=== PATIENT | female | born 1950 | race Caucasian/White ===

== ENCOUNTER → 2020-04-10 15:39 | Outpatient (BNVA) | payer MEDICARE, SELFPAY | PROVIDERS: Family Provider Nurse Practitioner Family; Visit Provider Family Medicine | DX: K21.9 Gastro-esophageal reflux disease without esophagitis (principal) | CPT/HCPCS: 36415; 80053; 84439; 84443; 85025 ==

== ENCOUNTER → 2021-04-16 09:26 | Outpatient (BNVA) | payer MEDICARE, SELFPAY | PROVIDERS: Family Provider Nurse Practitioner Family; PCP Family Medicine; Visit Provider Nurse Practitioner Family | DX: R03.0 Elevated blood-pressure reading, without diagnosis of hypertension (principal); E56.9 Vitamin deficiency, unspecified | CPT/HCPCS: 80053; 80061; 82306; 84443; 85025 ==

== ENCOUNTER 2021-05-15 13:42 | Outpatient (CLI) | payer MEDICARE, SELFPAY ==
--- NOTE | 2021-05-15 13:53 | MM_ITS ---
WS: [email or web address] BILATERAL DIGITAL SCREENING MAMMOGRAPHY WITH CAD CLINICAL INFORMATION: Z12.31 - Encounter for screening mammogram for malignant ... HISTORY: Screening mammogram. No current complaints. COMPARISON: TECHNIQUE: Bilateral CC and MLO views. FINDINGS: Scattered fibroglandular densities bilaterally. Benign punctate and lucent centered calcifications ar e stable. No suspicious focal mass, asymmetry, calcifications, or architectural distortion. No eviden ce of malignancy. MM/[place] [id number] IMPRESSION: BI-RADS: 2-Benign FOLLOW UP: 1 Year Follow-up Recommend return to annual screening mammography.
--- NOTE | 2021-05-15 14:20 | XR_ITS ---
WS: [email or web address] DEXA (DUAL ENERGY X-RAY ABSORPTIOMETRY) Bone mineral density was performed using a [employer] machine. HISTORY: Z78.0 - Asymptomatic menopausal state COMPARISON: None available. Lumbar spine BMD (L1-L4): 0.905 g/cm2 T score: -2.3 Z score: -0.2 Total hip BMD: Left: 0.705 g/cm2. T score: -2.4 Z score: -0.7 Right: 0.693 g/cm2. T score: -2.5 Z score: -0.8 10 year probability of a major osteoporotic fracture is 17%. XR/XR DEXA axial skeleton* [id number] IMPRESSION: OSTEOPOROSIS based upon the WHO classification for females.
== END 2021-05-15 13:43 | disposition home or self-care (01) ==
LOC: RADSHAW 13:46
PROVIDERS: PCP Family Medicine; Visit Provider Nurse Practitioner Family
DX: Z12.31 Encounter for screening mammogram for malignant neoplasm of breast (principal); Z78.0 Asymptomatic menopausal state; M81.0 Age-related osteoporosis without current pathological fracture
CPT/HCPCS: 77067; 77080

== ENCOUNTER 2022-03-13 10:03 | Outpatient (CLI) | payer MEDICARE, SELFPAY ==
--- NOTE | 2022-03-13 10:34 | XRR_ITS ---
PROCEDURE INFORMATION: Exam: XR Thoracic Spine Exam date and time: 03/13/2022 10:56 AM Age: 71 years old Clinical indication: Pain in thoracic spine; Prior surgery; Surgery type: Appendix; Patient HX: Mid back pain, costocondritis; Additional info: R07.89 - other chest pain TECHNIQUE: Imaging protocol: Radiologic exam of the thoracic spine. Views: 3 views. COMPARISON: No relevant prior studies available. FINDINGS: Bones/joints: Low density bone consistent with osteopenia/osteoporosis. 10% anterior wedging of T7 of indeterminate age. Soft tissues: Unremarkable. XR/XR thoracic spine 3V* [id number] IMPRESSION: 1. Low density bone consistent with osteopenia/osteoporosis. 2. 10% anterior wedging of T7 of indeterminate age.
== END 2022-03-13 10:04 | disposition home or self-care (01) ==
LOC: RAD 10:04
PROVIDERS: PCP Family Medicine; Visit Provider Family Medicine
DX: M54.6 Pain in thoracic spine (principal)
CPT/HCPCS: 72072

== ENCOUNTER → 2022-03-24 12:35 | Outpatient (BNVA) | payer MEDICARE, SELFPAY | PROVIDERS: PCP Family Medicine; Visit Provider Family Medicine | DX: M81.0 Age-related osteoporosis without current pathological fracture (principal); M81.8 Other osteoporosis without current pathological fracture; S22.000A Wedge compression fracture of unspecified thoracic vertebra, initial encounter for closed fracture; R07.89 Other chest pain | CPT/HCPCS: 80053 ==

== ENCOUNTER 2022-06-11 13:21 | Outpatient (CLI) | payer MEDICARE, SELFPAY ==
--- NOTE | 2022-06-11 13:27 | MM_ITS ---
WS: [email or web address] BILATERAL 3D TOMOSYNTHESIS DIGITAL SCREENING MAMMOGRAPHY WITH CAD CLINICAL INFORMATION: SCREENING HISTORY: Screening mammogram. No current complaints. COMPARISON: 2020 TECHNIQUE: Bilateral CC and MLO views. FINDINGS: Scattered fibroglandular densities bilaterally. No suspicious focal mass, asymmetry, calcifications, or architectural distortion. No evidence of malignancy. Stable punctate calcifications. MM/[place] [id number] IMPRESSION: BI-RADS: 2-Benign FOLLOW UP: 1 Year Follow-up Recommend return to annual screening mammography.
== END 2022-06-11 13:22 | disposition home or self-care (01) ==
LOC: RAD 13:23
PROVIDERS: PCP Family Medicine; Visit Provider Family Medicine
DX: Z12.31 Encounter for screening mammogram for malignant neoplasm of breast (principal)
CPT/HCPCS: 77063; 77067

== ENCOUNTER → 2022-09-16 09:18 | Outpatient (BNVA) | payer MEDICARE, SELFPAY | PROVIDERS: PCP Family Medicine; Visit Provider Family Medicine | DX: E56.9 Vitamin deficiency, unspecified (principal); E78.5 Hyperlipidemia, unspecified; M81.0 Age-related osteoporosis without current pathological fracture; R07.89 Other chest pain | CPT/HCPCS: 80053; 80061; 84439; 84443 ==

== ENCOUNTER 2023-05-18 13:36 | Outpatient (CLI) | payer MEDICARE, SELFPAY ==
--- NOTE | 2023-05-18 14:00 | XR_ITS ---
WS: [email or web address] DEXA (DUAL ENERGY X-RAY ABSORPTIOMETRY) Bone mineral density was performed using a [employer] machine. HISTORY: Z78.0 - Asymptomatic menopausal state COMPARISON: 05/15/2021 Lumbar spine BMD (L1-L4): 0.974 g/cm2 T score: -1.7 Z score: 0.3 Total hip BMD: Left: 0.723 g/cm2. T score: -2.3 Z score: -0.5 Right: 0.727 g/cm2. T score: -2.2 Z score: -0.4 10 year probability of a major osteoporotic fracture is 17.2%. Compared to the prior study from 05/15/2021. Lumbar spine bone mineral density has increased by 7.6%. Bilateral hips bone mineral density has increased by 3.7%. IMPRESSION: OSTEOPENIA based upon the WHO classification for females. Significant increase in bone mineral density within the lumbar spine and hips since the prior study.
== END 2023-05-18 13:37 | disposition home or self-care (01) ==
LOC: RAD 13:36
PROVIDERS: PCP Family Medicine; Visit Provider Family Medicine
DX: Z78.0 Asymptomatic menopausal state (principal); M85.80 Other specified disorders of bone density and structure, unspecified site
CPT/HCPCS: 77080

== ENCOUNTER 2023-06-10 10:35 | Outpatient (CLI) | payer MEDICARE, SELFPAY ==
--- NOTE | 2023-06-10 10:44 | XR_ITS ---
WS: [email or web address] Exam: XR cervical spine 3V* [id number] Date/Time of Exam: 06/10/2023 10:48 AM Reason For Exam: M54.2 - Cervicalgia No fracture or dislocation. 4 mm degenerative anterolisthesis of C7 on T1. Early degenerative disc na rrowing at C5-6. Facet DJD at all levels. Normal paraspinal soft tissues. The odontoid is intact. IMPRESSION: 1. No fracture or malalignment. 2. Degenerative changes as detailed above.
== END 2023-06-10 10:36 | disposition home or self-care (01) ==
LOC: RAD 10:36
PROVIDERS: PCP Family Medicine; Visit Provider Family Medicine
DX: M47.813 Spondylosis without myelopathy or radiculopathy, cervicothoracic region (principal); M81.0 Age-related osteoporosis without current pathological fracture
CPT/HCPCS: 72040

== ENCOUNTER → 2023-09-10 11:01 | Outpatient (BNVA) | payer MEDICARE, SELFPAY | PROVIDERS: PCP Family Medicine; Referring Provider Family Medicine; Visit Provider Surgery | DX: K21.9 Gastro-esophageal reflux disease without esophagitis (principal) | CPT/HCPCS: 99204 ==

== ENCOUNTER 2023-10-08 09:18 | Day surgery (SDC) | payer MEDICARE, SELFPAY ==
[2023-10-08 09:34] VITALS: BP 143/73; PULSE 71; RESP 18; TEMP 36.5; O2SAT 100; BMI 22.1
[2023-10-08] MEDS: sodium chloride 0.9% 1,000 ML 30 ML IV (09:39)
--- NOTE | 2023-10-08 10:31 | ANES.PREANE2 ---
Pre-Anesthetic Assessment Height/Weight: Height 1.6 m Weight 56.699 kg Temp Pulse Resp BP Pulse Ox O2 Del Method 97.7 F 71 18 143/73 100 Room Air 10/08/23 09:34 10/08/23 09:34 10/08/23 09:34 10/08/23 09:34 10/08/23 09:34 10/08/23 09:34 Preop Diagnosis: GERD Operation Date: 10/08/23 10:30 Proposed Procedures p EGD(Not Applicable) - Deuce Mobley DO Familial anesthetic complications: none Was Beta Peng taken within 24 hours: N/A Was Clonidine taken within 24 hours: N/A Last intake: Intake Last Liquid Date 10/07/23 Last Liquid Time 22:00 Last Solid Date 10/07/23 Last Solid Time 18:30 Social No alcohol and No tobacco Exam alert, oriented x 3, clear to auscultation bilaterally and regular rate & rhythm Airway Submandibular: within normal limits Cervical ROM: within normal limits Mallampati: Class I Dentition: full Pulmonary None reported CV/HEM None reported None reported Hepatic None reported GI Gastroesophageal Reflux Disease Metabolic None reported Musc/skel None reported Neuropsych None reported Anesthetic Plan Anesthesia: MAC Risk of > 500 ml blood loss (7ml/kg in children): No Medications/Allergies Home Medications Medication Instructions Recorded Confirmed Last Taken Type osteo-7 3 tab PO TID 07/01/21 10/08/23 10/07/23 History oxyquinoline 0.025 %-sodium lauryl See Rx Instructions vaginal 04/06/23 10/08/23 Unknown Rx sulfate 0.01 % vaginal gel DIRECTED #113.4 grams (Trimo-Cast Jelly) pantoprazole 40 mg tablet,delayed 40 mg PO BID 6 weeks #84 tabs 09/28/23 10/08/23 Unknown Rx release (Protonix) Allergies Allergy/AdvReac Type Severity Reaction Status Date / Time No Known Allergies Allergy Verified 10/08/23 09:27 Current Medications Generic Name Dose Route Start Last Admin Trade Name Freq PRN Reason Stop Dose Admin Sodium Chloride 1,000 mls @ 30 mls/hr 10/08/23 09:30 10/08/23 09:39 Sodium Chloride 0.9% IV 10/09/23 09:29 30 mls/hr .Q24H PERRI Administration PFSH Anesthesia Medical History Female bladder prolapse Patient was counseled regarding findings with cystocele stage II. She was counseled regarding pelvic organ prolapse, that her uterus had dropped down into the vagina, likely due to the weakening of the connective tissues and ligaments that support the uterus. In pre-menopausal women, prolapse often develops after the pelvic floor muscles become stretched from childbirth. But additional causes of pelvic organ prolapse include obesity, coughing, COPD, and conditions that cause paralysis of the pelvic floor muscles, such as multiple sclerosis, a spinal cord injury, or muscular dystrophy. Her pelvic organ prolapse is a stage III prolapse and this mean Pelvic organ(s) are beginning to bulge to or beyond the opening of the vagina. In her case her bladder pass the introitus as depicted above. Treatments for POP depends on the severity of the prolapse and include medication, pessaries physical therapy and surgery. She elected for pessary and decline surgery at this time because she is taking care of her who just recently suffered a stroke. A #5 pessary with diaphragm was placed without complications. Patient was counseled regarding maintenance. Pessary maintenance Patient reports she is doing good with pessary and she wants to continue using it. Patient referred the current pessary size feel comfortable when she is standing up. On examination no tight spots or abrasions noted. No lesions noted. She currently have #4 ring pessary with diaphragm. Was counseled on the proper way of insertion and removal of the pessary and advice to continue using the Trimosan intravaginal jelly for lubrication to decrease the risk of BV. Surgical History History of appendectomy (~1986) Family History Mother Hypertension Ovarian cancer 76 Father Hyperlipidemia Diabetes Unknown Heart disease Maternal grandfather Patient denies medical problems Denies family history of: Diabetes Mellitus, Stroke, Thyroid problems, Breast Cancer, Uterine Cancer, Colon Cancer Denies family history of Colon cancer Clotting disorder Breast cancer Anesthesia complication Bleeding disorder Uterine cancer Thyroid disease Stroke Social History Smoking and tobacco/nicotine status: never used tobacco/nicotine Alcohol intake: never Substance/Drug Use: never Data Anesthesia Cardiac Studies: No Data to Display
--- NOTE | 2023-10-08 11:04 | W.PM.OPSUD ---
Surgery/Procedure H&P Update DATE OF PROCEDURE: October 08, 2023 DATE H&P PERFORMED: 09/10/23 H&P UPDATE INFORMATION: I have reviewed H&P completed within last 30 days, I have examined patient prior to procedure and No changes to prior documentation PREOP DIAGNOSIS: GERD PLANNED PROCEDURE: Operation Date: 10/08/23 10:30 Proposed Procedures p EGD(Not Applicable) - Deuce Mobley DO
[2023-10-08 11:15] VITALS: BP 104/60; PULSE 64; RESP 12; TEMP 36.4; O2SAT 98
[2023-10-08 11:20] VITALS: BP 103/59; PULSE 61; RESP 12; O2SAT 97
[2023-10-08 11:30] VITALS: BP 105/74; PULSE 64; RESP 18; O2SAT 99
--- NOTE | 2023-10-08 15:00 | ANE.PACU2 ---
Inpatient post-anesthesia follow up: Airway intact: Yes Vital signs: Temperature 97.6 F Pulse Rate 64 Respiratory Rate 18 Blood Pressure 105/74 Pulse Oximetry 99 Oxygen Delivery Me thod Room Air Oxygen Flow Rate Fraction of Inspir ed Oxygen Hydration adequate: No Nausea and vomiting: No Pain level: 2 Mental status: Baseline
== END 2023-10-08 11:54 | disposition home or self-care (01) ==
PROVIDERS: PCP Family Medicine; Visit Provider Surgery
PROC: 0DJ08ZZ Inspection of Upper Intestinal Tract, Via Natural or Artificial Opening Endoscopic (ICD-10-PCS; CPT 43235; principal; 2023-10-08 10:30)
DX: K21.9 Gastro-esophageal reflux disease without esophagitis (principal); K44.9 Diaphragmatic hernia without obstruction or gangrene
CPT/HCPCS: 43239; 88305; 88342; J2704; J7030

== ENCOUNTER → 2023-10-13 12:17 | Outpatient (BNVA) | payer MEDICARE, SELFPAY | PROVIDERS: PCP Family Medicine; Visit Provider Obstetrics & Gynecology | DX: R10.2 Pelvic and perineal pain (principal) | CPT/HCPCS: 76830 ==

== ENCOUNTER → 2023-10-30 10:19 | Outpatient (BNVA) | payer MEDICARE, SELFPAY | PROVIDERS: PCP Family Medicine; Visit Provider Surgery | DX: Z09 Encounter for follow-up examination after completed treatment for conditions other than malignant neoplasm (principal); K21.9 Gastro-esophageal reflux disease without esophagitis; K44.9 Diaphragmatic hernia without obstruction or gangrene | CPT/HCPCS: 99214 ==

== ENCOUNTER → 2024-01-11 11:09 | Day surgery (SDC) | payer MEDICARE, SELFPAY | LOC: OPS 01-28 12:26 | PROVIDERS: PCP Family Medicine; Visit Provider Obstetrics & Gynecology | DX: Z01.818 Encounter for other preprocedural examination (principal) | CPT/HCPCS: 93005 ==

== ENCOUNTER 2024-01-19 11:09 | Observation (INO) | payer MEDICARE, SELFPAY ==
--- NOTE | 2024-01-11 11:09 | ECG_ITS ---
[facility] Test Date: 2024-01-11 Pat Name: Tara Pena Department: Room: Gender: Female Patient Transport Officer: : 1950 Requested By: Brant Martinez Order Number: [id number] Karina MD: Arnav Krause M.D. Measurements Intervals [place] Rate: 67 P: 63 [place]: 150 QRS: 37 QRSD: 86 T: 41 QT: 401 QTc: 425 Interpretive Statements SINUS RHYTHM POSSIBLE RIGHT VENTRICULAR CONDUCTION DELAY [RSR (QR) IN V1/V2] No previous ECG available for comparison Electronically Signed On 01-11-2024 14:22:11 CDT by Arnav Krause M.D. [id number]
[2024-01-11 11:17] LABS: Basophils % 0.7 %; Eosinophils # 0.2 10^3/uL (0.0-0.8); Eosinophils % 2.6 %; Hematocrit 38.5 % (36-47); Lymphocytes % 33.9 %; Mean Corpuscular HGB Conc 32.7 g/dL (30-55); Mean Corpuscular Hemoglobin 30.4 pg (27-33); Mean Platelet Volume 9.7 fL (7.4-10.4); Monocytes # 0.6 10^3/uL (0.2-0.9); Monocytes % 9.7 %; Neutrophils # 3.06 10^3/uL (1.8-7.7); Neutrophils % 52.9 %; Nucleated Red Blood Cells % 0 %; Platelet Count 227 10^3/cmm (157-399); Red Blood Count 4.14 10^6/uL (3.85-5.65); Red Cell Distribution Width 14.5 % (12.1-15.1); White Blood Count 5.78 10^3/uL (3.29-11.43)
--- NOTE | 2024-01-11 11:21 | ANES.PREANE2 ---
Pre-Anesthetic Assessment Height/Weight: Height 1.6 m Operation Date: 01/19/24 07:00 Proposed Procedures p Total Vaginal Hysterectomy 21673, 72206, 63035, 72322, R10.2, N81.3(Not Applicable) - MD kelly Minor Salpingo-Oophorectomy (Vaginal)(Bilateral) - MD kelly Minor Anterior Repair Anterior Colporrhaphy(Not Applicable) - MD kelly Minor Posterior Repair Posterior Colporrhaphy(Not Applicable) - MD kelly Minor Sling Single Incision Midurethral Sling(Not Applicable) - MD kelly Minor Sacrospinous Ligament Suspension Sacrospinous Fixation(Not Applicable) - Brant Dobbs MD Social No alcohol and No tobacco Exam alert, oriented x 3, clear to auscultation bilaterally and regular rate & rhythm Airway Submandibular: within normal limits Cervical ROM: within normal limits Mallampati: Class I Pulmonary None reported CV/HEM None reported None reported Hepatic None reported GI Hiatal Hernia Metabolic None reported Anesthetic Plan ASA status: 2 Anesthesia: General Medications/Allergies Home Medications Medication Instructions Recorded Confirmed Last Taken Type oxyquinoline 0.025 %-sodium lauryl See Rx Instructions vaginal 04/06/23 01/11/24 01/11/24 Rx sulfate 0.01 % vaginal gel DIRECTED #113.4 grams (Trimo-Cast Jelly) Allergies Allergy/AdvReac Type Severity Reaction Status Date / Time No Known Allergies Allergy Verified 10/30/23 10:21 [facility] Anesthesia Medical History Female bladder prolapse Patient was counseled regarding findings with cystocele stage II. She was counseled regarding pelvic organ prolapse, that her uterus had dropped down into the vagina, likely due to the weakening of the connective tissues and ligaments that support the uterus. In pre-menopausal women, prolapse often develops after the pelvic floor muscles become stretched from childbirth. But additional causes of pelvic organ prolapse include obesity, coughing, COPD, and conditions that cause paralysis of the pelvic floor muscles, such as multiple sclerosis, a spinal cord injury, or muscular dystrophy. Her pelvic organ prolapse is a stage III prolapse and this mean Pelvic organ(s) are beginning to bulge to or beyond the opening of the vagina. In her case her bladder pass the introitus as depicted above. Treatments for POP depends on the severity of the prolapse and include medication, pessaries physical therapy and surgery. She elected for pessary and decline surgery at this time because she is taking care of her who just recently suffered a stroke. A #5 pessary with diaphragm was placed without complications. Patient was counseled regarding maintenance. Pessary maintenance Patient reports she is doing good with pessary and she wants to continue using it. Patient referred the current pessary size feel comfortable when she is standing up. On examination no tight spots or abrasions noted. No lesions noted. She currently have #4 ring pessary with diaphragm. Was counseled on the proper way of insertion and removal of the pessary and advice to continue using the Trimosan intravaginal jelly for lubrication to decrease the risk of BV. Surgical History History of appendectomy (~1986) Family History Mother Hypertension Ovarian cancer 76 Father Hyperlipidemia Diabetes Unknown Heart disease Maternal grandfather Patient denies medical problems Denies family history of: Diabetes Mellitus, Stroke, Thyroid problems, Breast Cancer, Uterine Cancer, Colon Cancer Denies family history of Colon cancer Clotting disorder Breast cancer Anesthesia complication Bleeding disorder Uterine cancer Thyroid disease Stroke Social History (Updated 01/11/24 @ 08:26 by Pojoa Hameed LPN) Smoking and tobacco/nicotine status: never used tobacco/nicotine Data Anesthesia 01/11/24 10:50 01/11/24 10:50 Short CBC 01/11/24 Range/Units 10:50 WBC 5.78 (3.29-11.43) 10^3/uL Hgb 12.60 (11.27-16.99) g/dL Hct 38.5 (36-47) % MCV 93.0 (85-98) fl Plt Count 227 (157-399) 10^3/cmm Neut % (Auto) 52.9 % Neut # (Auto) 3.06 (1.8-7.7) 10^3/uL Cardiac Studies: No Data to Display
[2024-01-11 11:31] LABS: Add Urine Microscopic? YES; Bilirubin Urine Neg (Negative); Blood Urine 2+ (Negative); Glucose Urine UA Norm (Normal); Ketones Urine Negative (Negative); Leukocyte Esterase Urine 1+ (Negative); Nitrate Urine Negative (Negative); Protein Urine Neg (Negative); Specific Gravity, Urine 1.005 (1.005-1.030); Urine Appearance Clear (CLEAR); Urine Color Yellow (Yellow); Urobilinogen Urine Norm (Negative); pH Urine 7 (5-7)
[2024-01-11 11:33] LABS: Add Urine Culture? No; Bacteria Urine TRACE /hpf; RBC Urine 0-4 /hpf (0-2); Squamous Epithelial Cell Urine 0-4 /hpf (0-5); WBC Urine 0-4 /hpf (0-5)
[2024-01-11 11:44] LABS: Alanine Aminotransferase 14 U/L (0-33); Albumin Level 4.6 g/dL (3.5-5.2); Alkaline Phosphatase 78 U/L (35-105); Anion Gap 16.2 (5-19); Aspartate Amino Transferase 23 U/L (0-32); Blood Urea Nitrogen 22 mg/dL (8-23); Calcium 9.4 mg/dL (8.5-10.5); Carbon Dioxide 25 mmol/L (22-29); Chloride 102 mmol/L (98-107); Globulin 2.7 g/dL (1.3-4.6); Glucose 99 mg/dL (65-115); Osmolality Calculated 291 mOsm/kg (285-295); Potassium 4.2 mmol/L (3.5-5.1); Sodium 139 mmol/L (136-145); Total Bilirubin 0.4 mg/dL (0.15-1.2); Total Protein 7.3 g/dL (6.6-8.7)
[2024-01-19] VITALS (41 sets, daily range): BP systolic 77–135; BP diastolic 45–67; PULSE 54–76; RESP 12–26; TEMP 36.4–37.2; O2SAT 94–100; BMI 22.1
--- NOTE | 2024-01-19 06:50 | W.PM.OPSUD ---
Surgery/Procedure H&P Update DATE OF PROCEDURE: January 19, 2024 DATE H&P PERFORMED: 01/11/24 H&P UPDATE INFORMATION: I have reviewed H&P completed within last 30 days, I have examined patient prior to procedure and No changes to prior documentation PREOP DIAGNOSIS: Uterine prolapse, cystocele stage III, PLANNED PROCEDURE: Operation Date: 01/19/24 08:00 Proposed Procedures p Total Vaginal Hysterectomy 70490, 09685, 10114, 93857, R10.2, N81.3(Not Applicable) - Brant Dobbs MD s Salpingo-Oophorectomy (Vaginal)(Bilateral) - Brant Dobbs MD s Anterior Repair Anterior Colporrhaphy(Not Applicable) - Brant Dobbs MD s Posterior Repair Posterior Colporrhaphy(Not Applicable) - Brant Dobbs MD s Sling Single Incision Midurethral Sling(Not Applicable) - Brant Dobbs MD s Sacrospinous Ligament Suspension Sacrospinous Fixation(Not Applicable) - Brant Dobbs MD
[2024-01-19] MEDS: sodium chloride 0.9% 500 ML IV (07:06)
[2024-01-19] MEDS: enoxaparin 30 mg/0.3 mL Syringe SUBCUT (07:06)
[2024-01-19] MEDS: sodium chloride 0.9% 1,000 ML 30 ML IV (07:07)
[2024-01-19] MEDS: scopolamine 1.5 Patch 1 PATCH TRANSDERMA (07:07)
--- NOTE | 2024-01-19 07:28 | P.ANESUD_ITS ---
Pre-Anesthetic Update Pre-Anesthetic Assessment: Date of Surgery/Procedure: 01/19/24 Preop Rahel gnosis: Uterine prolapse, cystocele stage III, Proposed Procedure: Operation Date: 01/19/24 08:00 Proposed Procedures p Total Vaginal Hysterectomy 11744, 43480, 55654, 55859, R10.2, N81.3(Not Applicable) - MD kelly Minor Salpingo-Oophorectomy (Vaginal)(Bilateral) - MD kelly Minor Anterior Repair Anterior Colporrhaphy(Not Applicable) - MD kelly Minor Posterior Repair Posterior Colporrhaphy(Not Applicable) - MD kelly Minor Sling Single Incision Midurethral Sling(Not Applicable) - MD kelly Minor Sacrospinous Ligament Suspension Sacrospinous Fixation(Not Applicable) - Brant Dobbs MD Any changes to Pre-Anesthetic Assessment?: No Last Intake: Intake Last Liquid Date 01/18/24 Last Liquid Time 21:30 Last Solid Date 01/18/24 Last Solid Time 19:30 Vitals: Temperature 97.6 F 01/19/24 06:46 Temperature Source Temporal Artery S can 01/19/24 06:46 Pulse Rate 66 01/19/24 06:46 Respiratory Rate 18 01/19/24 06:46 Blood Pressure 135/66 01/19/24 06:46 Blood Pressure Karoline n 89 01/19/24 06:46 Pulse Oximetry 100 01/19/24 06:46 Oxygen Delivery Me thod Room Air 01/19/24 06:47 Exam: Pre-Anes Outpt Exam: alert, oriented x 3, clear to auscultation bilaterally and regular rate & rhythm Cardiac Studies: No Data to Display
[2024-01-19] MEDS: ceFOXitin 2,000 mg SDV 2000 MG IVP (07:39)
[2024-01-19] MEDS: lidocaine-epi 2% PF 1:200,000 20 mL SDV INJECTION ×2 (08:20→09:30)
--- NOTE | 2024-01-19 10:27 | P.OP_ITS ---
Operative Report Date of procedure: January 19, 2024 Pre-op diagnosis: Pelvic pain Cystocele uterine prolapse stage III Post-op diagnosis: Pelvic pain Cystocele stage III Uterovaginal prolapse stage III Rectocele stage III Procedure done: Total vaginal hysterectomy Right salpingo-oophorectomy Anterior colporrhaphy augmented with allograft Midurethral sling Posterior colporrhaphy Sacrospinous fixation Cystoscopy Implants: Coloplast dermis allograft Coloplast Altis sling Specimens removed/disposition: Uterus Right fallopian tube and ovary Surgeon: Brant Dobbs MD Estimated blood loss (mL): 350 IV fluids (mL): 1,500 Urine output (mL): 300 Complications: Bleeding Findings: Small uterus Small right ovary Left ovary could not be identified Procedure: After informed consent and risks, benefits, indications and alternatives reviewed with the patient was taken to the operating room. The patient was placed in dorsal lithotomy position prepped, and draped in the usual sterile fashion. The pre-procedure timeout verifying the correct patient, procedure, site and side, could not requirements was performed and acknowledge by the OR team. A Calloway catheter was placed. A Bookwalter vaginal retractor was placed into the vagina in usual manner visualize the cervix. Cervix was grasped with a single tooth tenaculum and circumferentially infiltrated with 2% lidocaine with epinephrine. Then cervix was circumferentially incised with bovie and the bladder was dissected off the pubovesical cervical fascia anteriorly with a sponge stick and Metzenbaum scissors. The anterior peritoneal reflection was identified and the anterior cul-de-sac was entered sharply with Metzenbaum scissors. The same procedure was performed posteriorly and a posterior colpotomy was made through the posterior cul-de-sac space without difficulty and the posterior blade of the Bookwalter vaginal retractor was advanced posteriorly into the cul-de-sac. At this time, the left and right uterosacral ligaments were isolated and ligated with 0 Vicryl. The LigaSure device was placed over the uterosacral ligaments on either side and was then used in a serial fashion up through the cardinal ligaments bilaterally cross-clamped, cut, and sealed with the LigaSure device. Finally, the uterine arteries were cross-clamped, cut, sealed and ligated with the LigaSure device. Hemostasis was assured. The broad ligaments were then serially clamped, sealed and cut with the LigaSure device on both sides. Excellent hemostasis was visualized. Both cornua were clamped, sealed and cut with the LigaSure device. Then the pedicles were then suture ligated with excellent hemostasis. The uterus was excised and submitted for pathologic evaluation. No other abnormalities were noted in the pelvic cavity. Then the right side Infundibular ligament was identified. The ureter was confirmed along the pelvic side wall and peristalsis was noted. The LigaSure device was then used to clamp, sealed and transcepted at middistance, again being sure to be clear of the ureter and the fallopian tube and ovary were removed. The the left ovary could not safely be identified and it was not removed. Good hemostasis was assure on both sides. The peritoneum was then closed in a pursestring fashion with 0 Vicryl suture. The vaginal cuff angles were closed with [id number] #0 Vicryl suture on both sides and transfixed with the ipsilateral cardinal and uterosacral ligaments. The remainder of the vaginal cuff was closed with #0 Vicryl in a running locked fashion. The anterior vaginal mucosa beneath the midurethra was infiltrated with 2% lidocaine with epinephrine. A vertical midline incision was made beneath the midurethra, nearly 1.5 cm length. Careful submucosal dissection was performed bilaterally up to the interior portion of the inferior pubic ramus. The insertion of adductor longus tendon on the patient?s pubic ramus was identified as reference land pj. Palpated the notch along the internal edge of ischiopubic ramus where the adductor longus tendon and the inferior pubic ramus meet. The Altis single incision sling (SIS) was selected. Then the needle of the SIS inserted aiming at the location of this notch. One of the integrated self- fixating tips place onto the needle by sliding it over the end of the needle. The needle/sling assembly was inserted toward the location of identified reference notch making sure that the flat of the handle is perpendicular to the desired path. The needle was tracked along the posterior surface of the ischiopubic ramus until the midline pj on the mesh is approximately at the midline position under the urethra. The needle was removed and the same was repeated on the contralateral side until the appropriate sling tension under the urethra was achieved ensuring that the mesh lays flat. The needle was removed and vaginal incision was closed in a running interlocking fashion with 2-0 Vicryl. Then the vaginal mucosa was then injected in the midline with 2% lidocaine with epinephrine. The vaginal mucosa was scored in the midline with the Bovie approximately 1 cm medial to the urethral meatus to 1 cm distal to the vaginal cuff. This vaginal mucosa was then undermined and then incised in the midline with the Metzenbaum scissors. The lateral aspects of the vaginal mucosa were then grasped with the Allis clamps and the vaginal mucosa was then dissected off the underlying fascia with the Metzenbaum scissors. Again, there was noted to be quite a bit of oozing at the incision, which was controlled with cautery. After adequate dissection was performed, bilaterally. The Coloplast dermis allograft was modified at time of application to fit spacea, 3 x 3 cm piece . The dermis allograft placed in front of cystocele ready to be implanted facing the vagina mucosa. Suture is placed at distal end of graft and placed towards vaginal cuff. Final suture is placed on proximal portion of the graft to complete the placement overlying the bladder. Then Interrupted vertical mattress sutures of 0 Vicryl were used to elevate the cystocele superiorly. The excessive vaginal mucosa was then trimmed with the Metzenbaum scissors and the vaginal mucosa was then reapproximated in the running interlocking fashion with 2-0 Vicryl. A posterior repair was performed next. An incision was made across the introitus. Metzenbaum scissors were used to tunnel beneath posterior vaginal mucosa until the apex of the rectocele bulge was reached. At this point, the rectum was from the posterior vaginal mucosa. A finger is inserted through the incision in the posterior vaginal mucosa, dissecting out the rectovaginal space (RVS). The right rectal pillar (RRP) is identified. The rectal pillar can be bluntly perforated either with the [finger or with the tip of a long Debbie clamp]. A [Breisky-Navratil] retractor is used for exposing the rectovaginal space in order to enter the pararectal space with retraction of the cardinal ligament, vagina, and rectum. Displacing the rectum to the left and the cardinal ligament and ureter anteriorly. A sponge dissector is used to bluntly dissect the sacrospinous ligament removing areolar tissue. The ischial spine was palpated directly, and a area approximately 2 cm medial to the spine was selected for insertion of the Anchorsure transvaginal sacrospinous fixation system. One end of the suture of Anchoresure system inserted through the sacrospinous ligament is placed through the muscular layer of the vagina. In a similar manner, the second suture is placed. The opposite end of the suture in the sacrospinous ligament is left free and held on a small hemostat. Then traction on this suture will draw the vaginal vault directly to the ligament, where a square knot affixes it to the sacrospinous ligament. After the therese stich is tied the second safety stich is tied. Then the colporrhaphy/vaginal repair is carried out in routine fashion. The rectal bulge imbricated in the midline with interrupted sutures of 2-0 vicryl suture. Levator ani muscles on either side were approximated in the midline with interrupted 0 Vicryl sutures. Excess posterior vaginal mucosa was excised, and the vaginal episiotomy was repaired by approximating the posterior vaginal mucosa with a suture of Vicryl 2-O. Bludigo was given IV. At this time, instruments were removed from the vagina at hemostasis assured. Then the Calloway catheter was removed and cystoscope was inserted. The bladder was filled with sterile water. Complete evaluation of the bladder mucosa was performed noting no lacerations, dimpling, tears, bleeding of the mucosa or muscular layers. Both ureteral orifices were identified. Prompt excretion of urine from both ureteral orifices was noted. Cystoscope was withdrawn. Calloway catheter was then placed yielding clear blue urine. A vaginal packing was placed and the patient was taken out of dorsal lithotomy position and awakened from the general anesthesia. The patient tolerated the procedure well and was taken to the PACU recovery room in a stable condition. Sponge, lap, needle and instruments counts were correct x3.
--- NOTE | 2024-01-19 11:16 | PC.NURSE ---
1034- per anesthesia - pts upper lip - left side was scuffed during intubation - no active drainage noted - small area of redness noted - will continue to monitor
--- NOTE | 2024-01-19 11:17 | PC.NURSE ---
1115- report called to Joan in OB - passed along left upper left abrasion as well as pt having vaginal packing
[2024-01-19 12:12] LABS: Basophils % 0.3 %; Eosinophils % 0.1 %; Hematocrit 29.8 % (36-47); Lymphocytes % 6.7 %; Mean Corpuscular HGB Conc 32.9 g/dL (30-55); Mean Corpuscular Hemoglobin 31.2 pg (27-33); Mean Corpuscular Volume 94.9 fl (85-98); Mean Platelet Volume 10.1 fL (7.4-10.4); Monocytes # 0.3 10^3/uL (0.2-0.9); Neutrophils # 13.46 10^3/uL (1.8-7.7); Neutrophils % 90.4 %; Nucleated Red Blood Cells % 0 %; Platelet Count 180 10^3/cmm (157-399); Red Blood Count 3.14 10^6/uL (3.85-5.65); Red Cell Distribution Width 14.6 % (12.1-15.1); White Blood Count 14.86 10^3/uL (3.29-11.43)
--- NOTE | 2024-01-19 12:32 | PC.NURSE ---
throughout pacu stay - Dr Jessica and CASSI Henderson notified of low blood pressure - pt asymptomatic - new order's rec'd up to this point - 1233 - Dr Jessica and Dr Dobbs at pts side - pt remains asymptomatic
--- NOTE | 2024-01-19 12:47 | PC.NURSE ---
1244 - Dr Dobbs returned to bedside -aware of continued blood pressure, v/s and that pt remains asymptomatic - instructed per Dr Dobbs to hold pt in pacu for approx 30 minutes and reassess with anesthesia
[2024-01-19 12:54] LABS: Anion Gap 15.6 (5-19); Blood Urea Nitrogen 15 mg/dL (8-23); Calcium 7.8 mg/dL (8.5-10.5); Carbon Dioxide 19 mmol/L (22-29); Chloride 114 mmol/L (98-107); Creatinine Clr Calc Pharmacy 54.3075; Glucose 144 mg/dL (65-115); Osmolality Calculated 301 mOsm/kg (285-295); Potassium 4.6 mmol/L (3.5-5.1); Sodium 144 mmol/L (136-145)
--- NOTE | 2024-01-19 13:11 | ANE.PACU2 ---
Inpatient post-anesthesia follow up: Airway intact: Yes Vital signs: Temperature 98.3 F Pulse Rate 70 Respiratory Rate 20 Blood Pressure 89/51 Pulse Oximetry 97 Oxygen Delivery Me thod Room Air Oxygen Flow Rate 8 Fraction of Inspir ed Oxygen Hydration adequate: Yes (2 L crystals, 250 cc albumin) Nausea and vomiting: No Pain level: 1 Mental status: Baseline
--- NOTE | 2024-01-19 13:12 | PC.NURSE ---
1312 - Dr Jessica at side to reassess pt - per DR olivares to move to OB 8 - updated pacu stay to HILARIO Oseguera
[2024-01-19] MEDS: ketorolac 30 mg/mL INJ IVP ×2 (13:52→20:16)
[2024-01-19] MEDS: dextrose 5%-lactated ringers 1,000 ML 125 ML IV (13:52)
--- NOTE | 2024-01-19 19:30 | P.DS_ITS ---
Discharge Providers [employer] Date of Admission: 01/19/24 11:09 Date of Discharge: 01/19/24 Attending Provider at Admission: Brant Dobbs MD Attending Provider at Discharge: Brant Dobbs MD Primary [employer]: Brant Dobbs MD Primary Care Provider: Avery Boyle DO Reason for Visit Reason for Visit: R10.2 Hospital Course Hospital Course Mrs. Pena 73-year-old female with uterovaginal prolapse, cystocele and rectocele. Was admitted for planned total vaginal hysterectomy with bilateral salpingo-oophorectomy, anterior colporrhaphy augmented with allograft, mid urethral sling, posterior colporrhaphy and sacrospinous fixation. The procedures were performed without complications with the exception of left salpingo-oophorectomy as the left ovary could not be identified. She is after reviving hemodynamically stable. Tolerating diet well. Patient was counseled regarding pelvic rest for 6 weeks (no sex, no tampons, no vaginal douches). Return to the emergency room if any fever, increased bleeding or pain. Physical Exam Narrative: GA: Alert and oriented ?3. HEENT: WNL. Heart: Regular rate and rhythm. Lungs: Clear to auscultation bilaterally. Abdomen: Bowel sounds present, nontender. 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 Extremities: No edema, no cyanosis, no calves pain. Urinary Catheter Management: Calloway: Cath Placed During This Visit: yes Urinary Catheter Date of Insertion: 01/19/24 Urinary Catheter Time of Insertion: 08:10 History History History 2 Term 2 0 Miscarriages/Ectopic 0 Living Children 2 Discharge Data Studies Completed and Pending Pending at discharge Category Date Time Status Hemagram Timed Lab 01/20/24 05:00 Uncollected Pathology: Surgical [PTH] Routine Pth 01/19/24 09:06 Received Laboratory Results WBC 14.86 10^3/uL (3.29-11.43) H 01/19/24 11:58 RBC 3.14 10^6/uL (3.85-5.65) L 01/19/24 11:58 Hgb 9.80 g/dL (11.27-16.99) L 01/19/24 11:58 Hct 29.8 % (36-47) L 01/19/24 11:58 MCV 94.9 fl (85-98) 01/19/24 11:58 MCH 31.2 pg (27-33) 01/19/24 11:58 MCHC 32.9 g/dL (30-55) 01/19/24 11:58 RDW 14.6 % (12.1-15.1) 01/19/24 11:58 Plt Count 180 10^3/cmm (157-399) 01/19/24 11:58 MPV 10.1 fL (7.4-10.4) 01/19/24 11:58 Neut % (Auto) 90.4 % 01/19/24 11:58 Lymph % (Auto) 6.7 % 01/19/24 11:58 Seneca % (Auto) 2.0 % 01/19/24 11:58 Eos % (Auto) 0.1 % 01/19/24 11:58 Baso % (Auto) 0.3 % 01/19/24 11:58 Neut # (Auto) 13.46 10^3/uL (1.8-7.7) H 01/19/24 11:58 Lymph # (Auto) 1.0 10^3/uL (0.8-4.8) 01/19/24 11:58 [place]eca # (Auto) 0.3 10^3/uL (0.2-0.9) 01/19/24 11:58 Eos # (Auto) 0.0 10^3/uL (0.0-0.8) 01/19/24 11:58 Baso # (Auto) 0.0 10^3/uL (0.0-0.1) 01/19/24 11:58 Nucleated RBC % (auto) 0 % 01/19/24 11:58 Nucleated RBCs # 0.0 /100WBC 01/19/24 11:58 Sodium 144 mmol/L (136-145) 01/19/24 11:58 Potassium 4.6 mmol/L (3.5-5.1) 01/19/24 11:58 Chloride 114 mmol/L (98-107) H 01/19/24 11:58 Carbon Dioxide 19 mmol/L (22-29) L 01/19/24 11:58 Anion Gap 15.6 (5-19) 01/19/24 11:58 BUN 15 mg/dL (8-23) 01/19/24 11:58 Creatinine 0.8 mg/dL (0.5-0.9) 01/19/24 11:58 GFR Calculation Not Reportable 01/19/24 11:58 Glucose 144 mg/dL (65-115) H 01/19/24 11:58 Calculated Osmolality 301 mOsm/kg (285-295) H 01/19/24 11:58 Calcium 7.8 mg/dL (8.5-10.5) L 01/19/24 11:58 Total Bilirubin 0.4 mg/dL (0.15-1.2) 01/11/24 10:50 AST 23 U/L (0-32) 01/11/24 10:50 ALT 14 U/L (0-33) 01/11/24 10:50 Alkaline Phosphatase 78 U/L (35-105) 01/11/24 10:50 Total Protein 7.3 g/dL (6.6-8.7) 01/11/24 10:50 Albumin 4.6 g/dL (3.5-5.2) 01/11/24 10:50 Globulin 2.7 g/dL (1.3-4.6) 01/11/24 10:50 Urine Color Yellow (Yellow) 01/11/24 10:15 Urine Appearance Clear (CLEAR) 01/11/24 10:15 Urine pH 7 (5-7) 01/11/24 10:15 Ur Specific [place] 1.005 (1.005-1.030) 01/11/24 10:15 Urine Protein Neg (Negative) 01/11/24 10:15 Urine Glucose (UA) Norm (Normal) 01/11/24 10:15 Urine Ketones Negative (Negative) 01/11/24 10:15 Urine Blood 2+ (Negative) H 01/11/24 10:15 Urine Nitrate Negative (Negative) 01/11/24 10:15 Urine Bilirubin Neg (Negative) 01/11/24 10:15 Urine Urobilinogen Norm mg/dL (Negative) 01/11/24 10:15 Ur Leukocyte Esterase 1+ (Negative) H 01/11/24 10:15 Urine RBC 0-4 /hpf (0-2) H 01/11/24 10:15 Urine WBC 0-4 /hpf (0-5) H 01/11/24 10:15 Ur Squamous Epith Cells 0-4 /hpf (0-5) H 01/11/24 10:15 Amorphous Sediment Not Reportable 01/11/24 10:15 Urine Bacteria Trace /hpf (NONE) 01/11/24 10:15 Blood Type O Positive 01/19/24 06:55 Rho(D) Type Rh positive 01/19/24 06:55 Antibody Screen Negative 01/19/24 06:55 Vitals Last Vital Signs Temp 98 F 01/19/24 14:40 Pulse 66 01/19/24 14:40 Resp 16 01/19/24 14:40 BP 94/55 01/19/24 14:40 Pulse Ox 99 01/19/24 14:40 O2 Del Method Room Air 01/19/24 14:40 O2 Flow Rate 8 01/19/24 10:44 Results Labs OB ([facility]): Blood Type O Positive 01/19/24 Antibody Screen Negative 01/19/24 Hct 29.8 % (36-47) L 01/19/24 Hgb 9.80 g/dL (11.27-16.99) L 01/19/24 Rho(D) Type Rh positive 01/19/24 Plt Count 180 10^3/cmm (157-399) 01/19/24 TSH 2.62 uIU/mL (0.27-4.20) 09/16/22 Free T4 1.07 ng/dL (0.82-1.77) 09/16/22 Discharge Plan Discharge Patient Disposition: Home Condition: Stable Prescriptions: New hydrocodone-acetaminophen 5-325 mg tablet 1 tab PO Q4H PRN (Reason: pain) Qty: 20 0RF docusate sodium [Colace] 100 mg capsule 100 mg PO BID Qty: 60 0RF ferrous sulfate [Iron (ferrous sulfate)] 325 mg (65 mg iron) tablet 325 mg PO BID Qty: 60 0RF ibuprofen 800 mg tablet 800 mg PO TID PRN (Reason: pain) Qty: 60 0RF acetaminophen 325 mg capsule 325 mg PO Q4H PRN (Reason: fever or postoperative pain) Qty: 60 0RF Continued Trimo-Cast Jelly 0.025-0.01 % gel See Rx Instructions VAGINAL DIRECTED Qty: 113.4 3RF Rx Instructions: 1/2 applicator vaginally as directed; Discharge Orders: Discharge Order (Routine); Ordered 01/19/24 Ordered By: Brant Dobbs Referrals: Brant Dobbs MD [Physician] - 2 weeks Discharge Diet: Usual diet Discharge Activity: Limit activity as instructed Patient Instructions: Acute Wound Care (DC), Opioid Safety, Post Anesthesia Care, Anterior Vaginal Repair (GEN), Posterior Vaginal Repair (GEN), Bladder Sling for Women (GEN), Vaginal Hysterectomy (GEN), Salpingo-Oophorectomy (GEN) Activity Restrictions/Additional Instructions: 1. Please call [facility] on next working day to make your post-operative appointment in 2 weeks. 2. Please stay home until you come back to the clinic on first post- hospatilization check up. 3. Please follow instructions on your medications CAREFULLY. 4. If you have abdominal incision, do not cover it unless dressing is necessary because of drainage. OK to shower, but avoid bath. Leave steri-strips until they fall off. If they are still on one week after surgery, you may remove them. 5. If you had vaginal surgery or vaginal repair, Dr. Dobbs may instruct you to take SITZ bath. 6. Yellow, blood tinged odorous vaginal discharge is usually normal after hysterectomy or vaginal surgeries. 7. No SEXUAL INTERCOURSE, tampons, or douches until you are completely released from the post-operative care. 8. Avoid constipation by eating right and maybe using some Metamucil or Milk of Magnesia. 9. All prescription refills are given during the working hours. Please do no wait till it runs out. Call the clinic at [phone] before your medication runs out. The clinic will get in touch with your doctor to prescribe medications if necessary. 10. Please remain within 40 mile radius from our hospital because emergencies do happen now and then during the post-operative period. 11. If you have stairs at home, take one step at a time slowly and minimize the number of trips. It helps to stay in one floor for the next few days. No lifting except what you can lift by one hand until you are released from the post-operative care. 12. Driving is discouraged until you are well healed. It may be 3-4 weeks before you feel strong enough to drive. You should be able to turn and look through the rear window without pain and you should be able to push the brake pedal very hard without pain before you drive. No fast rules, but SAFETY should be your primary concern. DO NOT drive if you are on sedating medications such as narcotics. 13. Call the clinic (during working hours) to make urgent appointment or go to the Emergency room, if any of the following occurs: i. Vaginal bleeding becomes heavy, more than a period. ii. Incision becomes red and sore, or drains pus. iii. Your TEMPERATURE is over 100.4F or you have chill. iv. IV site becomes red and swollen (a little ``knot?? is usually OK) v. Persistent nausea and vomiting vi. Persistent constipation or diarrhea vii. Rash or allergic reaction to medications. Discharge Attestations [employer] Time Spent in Discharge Care*: greater than 30 min Coding Level of Care Code Acute Code for Chg Collins
[2024-01-19] MEDS: docusate sodium 100 mg Capsule PO (20:16)
[2024-01-20] MEDS: dextrose 5%-lactated ringers 1,000 ML 125 ML IV (00:02)
[2024-01-20] MEDS: ketorolac 30 mg/mL INJ IVP (01:59)
[2024-01-20 05:28] VITALS: BP 91/56; PULSE 68; RESP 16; TEMP 36.8; O2SAT 96
--- NOTE | 2024-01-20 05:28 | PC.NURSE ---
vag packing removed at this time. pt tolderated well.
[2024-01-20 05:49] LABS: Hematocrit 24.1 % (36-47); Mean Corpuscular HGB Conc 33.6 g/dL (30-55); Mean Corpuscular Hemoglobin 31.3 pg (27-33); Mean Corpuscular Volume 93.1 fl (85-98); Mean Platelet Volume 10.4 fL (7.4-10.4); Platelet Count 143 10^3/cmm (157-399); Red Blood Count 2.59 10^6/uL (3.85-5.65); Red Cell Distribution Width 14.7 % (12.1-15.1); White Blood Count 8.35 10^3/uL (3.29-11.43)
[2024-01-20] MEDS: docusate sodium 100 mg Capsule PO (09:11)
[2024-01-20] MEDS: ibuprofen 800 mg tablet PO (09:11)
[2024-01-20 12:00] VITALS: BP 107/62; PULSE 77; RESP 16; TEMP 36.7
== END 2024-01-20 12:45 | disposition home or self-care (01) ==
LOC: OBGYN 11:10
PROVIDERS: Admitting Provider Obstetrics & Gynecology; PCP Family Medicine; Visit Provider Obstetrics & Gynecology
PROC: (CPT 57260; principal; 2024-01-19 08:00)
PROC: (CPT 58720; 2024-01-19 08:00)
PROC: 0JQC0ZZ Repair Pelvic Region Subcutaneous Tissue and Fascia, Open Approach (ICD-10-PCS; CPT 57240; 2024-01-19 08:00)
PROC: (CPT 57250; 2024-01-19 08:00)
PROC: (CPT 57288; 2024-01-19 08:00)
PROC: (CPT 57282; 2024-01-19 08:00)
DX: N81.3 Complete uterovaginal prolapse (principal); Z82.49 Family history of ischemic heart disease and other diseases of the circulatory system
CPT/HCPCS: 57260; 57282; 57288; 58262; 36415; 80048; 80053; 81001; 85025; 85027; 86850; 86900; 88307; C1713; C1762; G0378; J0131; J0694; J1100; J1650; J1885; J2371; J2405; J2704; J2710; J3010; J3490; J7030; J7040; J7121; P9045

== ENCOUNTER 2024-05-20 10:50 | Outpatient (CLI) | payer MEDICARE, SELFPAY ==
--- NOTE | 2024-05-20 | MM_ITS ---
WS: [id number] BILATERAL SCREENING DIGITAL TOMOSYNTHESIS MAMMOGRAM WITH CAD HISTORY: ANNUAL SCREENING COMPARISON: 06/11/2022, 05/15/2021 Bilateral CC and MLO views with tomosynthesis and synthetic mammography submitted. Computer aided det ection analyzed. Breast composition: There are scattered areas of fibroglandular density. No suspicious masses, microc alcifications or architectural distortion. Benign calcifications LEFT retroareolar region. MM/MM scr BI tomosynthesis [id number] IMPRESSION: BI-RADS: 2 - Benign. FOLLOW UP: 1 Year Follow-up
== END 2024-05-20 10:51 | disposition home or self-care (01) ==
LOC: RAD 10:51
PROVIDERS: PCP Family Medicine; Visit Provider Family Medicine
DX: Z12.31 Encounter for screening mammogram for malignant neoplasm of breast (principal); R92.323 Mammographic fibroglandular density, bilateral breasts; R92.1 Mammographic calcification found on diagnostic imaging of breast
CPT/HCPCS: 77063; 77067

== ENCOUNTER → 2025-03-20 14:22 | Outpatient (BNVA) | payer MEDICARE, SELFPAY | PROVIDERS: PCP Family Medicine; Visit Provider Nurse Practitioner Family | DX: M81.8 Other osteoporosis without current pathological fracture (principal); S22.000A Wedge compression fracture of unspecified thoracic vertebra, initial encounter for closed fracture; X58.XXXA Exposure to other specified factors, initial encounter | CPT/HCPCS: 72072 ==